=== PATIENT | female | born 1965 | race Caucasian/White ===

== ENCOUNTER 2018-06-07 18:52 | Emergency (ER) | payer OTHER ==
--- NOTE | 2018-06-07 19:39 | ED PDOC ---
HPI: Chest Pain Time Seen by Provider: 06/07/18 19:15 Chief Complaint (Nursing): Chest Pain Additional Complaint(s): Pt seen and examined at bedside with attending. 52F PMH HTN p/w acute onset, atraumatic LEFT sternal "weirdness", pressure-like, non-radiating, associated with mild SOB but denies dizziness, nausea, or recent illness. Pt had BP assessed at the time and reported as 165/109. She denies association with breathing, but says exacerbated by certain movements and denies any recent emotional distress. This is the first time with this type of pain and denies similarity to prior reflux problems. -ve: fevers, chills, N/V, abd pain, dysuria, diarrhea, WI/TIA hx ROSALIA: HCTZ, Lopressor Past Medical History Reviewed: Historical Data Vital Signs: Last Vital Signs Temp 36.9 C 06/07/18 19:00 Pulse 99 H 06/07/18 19:00 Resp 18 06/07/18 19:00 BP 141/94 H 06/07/18 19:00 Pulse Ox 99 06/07/18 19:00 - Medical History PMH: HTN - Family History Family History: States: Unknown Family Hx - Home Medications Home Medications: Ambulatory Orders Medication Instructions Recorded Naproxen [Naprosyn] 500 mg PO BID #20 tab 03/10/14 - Allergies Allergies/Adverse Reactions: Allergies Allergy/AdvReac Type Severity Reaction Status Date / Time No Known Allergies Allergy Unverified 06/07/18 19:00 Wells Criteria for PE - Wells Criteria for Pulmonary Embolism Clinical Signs and Symptoms of DVT: No P.E is #1 Diagnosis, or Equally Likely: No Heart Rate >100: No Immobilization at least 3 days;Surgery previous 4 weeks: No Previous, objectively diagnosed PE or DVT: No Hemoptysis: No Malignancy w/treatment within 6 months, or palliative: No Total Score: 0 Physical Exam - Reviewed Vital Signs Reviewed: Yes - Physical Exam Appears: Positive for: Well, Non-toxic. Negative for: No Acute Distress (mild concern) Skin: Positive for: Normal Color, Warm, Dry Eye Exam: Positive for: Normal appearance, EOMI Neck: Positive for: Supple Cardiovascular/Chest: Positive for: Regular Rate, Rhythm. Negative for: Murmur Respiratory: Positive for: Normal Breath Sounds. Negative for: Crackles, Rales, Rhonchi, Wheezing Gastrointestinal/Abdominal: Positive for: Normal Exam, Bowel Sounds, Soft. Negative for: Tenderness Back: Negative for: L CVA Tenderness, R CVA Tenderness Extremity: Positive for: Normal ROM. Negative for: Calf Tenderness Neurologic/Psych: Positive for: Alert, Oriented - Laboratory Results Result Diagrams: 06/07/18 19:51 06/07/18 19:51 - ECG O2 Sat by Pulse Oximetry: 99 Medical Decision Making Medical Decision Making: Given history of work-up for "racing heart" will r/o ACS vs. anxiety vs. costochondritis vs. reflux - CBC, CMP, Troponin, Mg - EKG - [place] 0825 Pt feeling a little better since Mylanta - CBC WNL - Chemistries showing hypokalemia - 40 MEq PO potassium - Troponin is pending 2100 Pt feeling better and first Troponin negative, but will need 2nd Troponin @ 0200. d/w patient who is agreeable - 2nd Troponin @ 0200 0330 Second troponin is WNL Disposition - Clinical Impression Clinical Impression: Atypical chest pain - Patient ED Disposition Is Patient to be Admitted: No Counseled Patient/Family Regarding: Diagnosis, Need For Followup - Disposition Referrals: Cj Barkley MD [Staff Provider] - (3-5 days) Disposition: Routine/Home Disposition Time: 03:31 Condition: IMPROVED Additional Instructions: Follow up with Dr Barkley in 3-5 days Return to the ER if chest pain recurs and/or worsens Forms: [employer] ([place]), [facility] ED School/Work Excuse
[2018-06-07] MEDS ORDERED: Alum-Mag Hydrox-Simethicone Susp (30 mL) PO ONE (19:43)
[2018-06-07] MEDS ORDERED: Alum-Mag Hydrox-Simethicone Susp (30 mL) ONE (19:54)
[2018-06-07 19:55] LABS: BASO % 0.6 % (0.0-2.0); EOS # 0.1 K/uL (0.0-0.7); EOS % 0.9 % (0.0-4.0); HEMOGLOBIN 12.9 g/dL (12.0-16.0); LYMPH # 2.9 K/uL (1.0-4.3); LYMPH % 39.5 % (20.0-40.0); MEAN CELL VOLUME 88.3 fl (81.0-99.0); MEAN CORPUSCULAR HEMOGLOBIN 29.6 pg (27.0-31.0); MEAN CORPUSCULAR HGB CONC 33.5 g/dL (33.0-37.0); MONO # 0.5 K/uL (0.0-0.8); MONO % 7.4 % (0.0-10.0); NEUT # 3.7 K/uL (1.8-7.0); NEUT % 51.6 % (50.0-75.0); NRBC % 0.2 % (0.0-0.0); RBC 4.35 Mil/uL (3.80-5.20); RED CELL DISTRIBUTION WIDTH 14.3 % (11.5-14.5); WHITE BLOOD COUNT 7.2 K/uL (4.8-10.8)
[2018-06-07 20:08] LABS: ALB/GLOB RATIO 1.3 (1.0-2.1); ALBUMIN 4.4 g/dL (3.5-5.0); ALT/SGPT 28 U/L (9-52); AST/SGOT 25 U/L (14-36); BLOOD UREA NITROGEN 16 mg/dl (7-17); CALCIUM 9.2 mg/dL (8.4-10.2); GFR NON-AFRICAN AMERICAN > 60
[2018-06-07] MEDS ORDERED: Potassium Chloride 20 mEq ER Tab PO ONE ×3 (20:20→21:00)
[2018-06-08 04:09] VITALS: BP 126/68; PULSE 95; RESP 18; TEMP 98.2; O2SAT 100
== END 2018-06-08 04:00 | disposition home or self-care (01) ==
LOC: H.ER 18:52
DX: R07.89 Other chest pain (principal); I10 Essential (primary) hypertension; Z86.73 Personal history of transient ischemic attack (TIA), and cerebral infarction without residual deficits